=== PATIENT | female | born 2000 | race Caucasian/White ===

== ENCOUNTER 2018-12-03 21:27 | Inpatient (IN) | payer OTHER ==
[2018-12-03 21:49] LABS: #Basophils 0.1 thou/uL (0.0-0.2); #Lymphocytes 0.6 thou/uL (1.20-3.40); #Monocytes 0.8 thou/uL (0.11-0.59); #Neutrophils 13.4 thou/uL (1.40-6.50); %Basophils 0.4 % (0.0-1.0); %Eosinophils 0.1 % (0.0-10.0); %Lymphocytes 3.8 % (28.0-48.0); %Monocytes 5.6 % (0.0-4.0); %Neutrophils 90.2 % (31.0-61.0); Hemoglobin 13.3 g/dL (12.0-16.0); Mean Corpuscular HGB CONC 35.1 g/dL (32.0-36.0); Mean Corpuscular Hemoglobin 31.5 pg (25.0-35.0); Mean Corpuscular Volume 89.7 fL (78.0-98.0); Mean Platelet Volume 7.3 fL (7.4-10.4); Platelet Count 267 thou/uL (130-400); RBC Distribution Width 10.8 % (11.5-14.5); Red Blood Cell (RBC) Count 4.22 mill/uL (4.00-5.20); White Blood Cell (WBC) Count 14.9 thou/uL (4.8-10.8)
[2018-12-03] MEDS ORDERED: Lorazepam 2 MG/ML VIAL ONE (21:51)
[2018-12-03] MEDS ORDERED: diphenhydrAMINE 50 MG/ML VIAL ONE (21:52)
[2018-12-03 21:56] LABS: BHCG - Serum Negative (NEGATIVE); Pregs Control Background? CLEAR/WHITE (CLR/WHITE); Pregs Control Bar Appear? YES (CONTROL BAR)
[2018-12-03 22:13] LABS: ALT (SGPT) 40 U/L (8-55); AST (SGOT) 100 U/L (5-34); Acetaminophen Less than 6.0 mcg/mL (10.0-30.0); Albumin 4.7 g/dL (3.5-5.0); Alcohol Less than 10 mg/dL (Less than 10); Alkaline Phosphatase 71 U/L (40-150); Anion Gap 16 mmol/L (10-20); BUN (Urea Nitrogen) 7 mg/dL (7.0-18.7); Bilirubin, Total 1.1 mg/dL (0.2-1.2); Calc. Creatinine Clearance 0 mL/min (70-130); Calcium 9.9 mg/dL (7.8-10.44); Carbon Dioxide 20 mmol/L (22-29); Chloride 85 mmol/L (98-107); Estimated GFR-MDRD Greater than 90; Globulin 3.1 g/dL (2.4-3.5); Glucose 94 mg/dL (70-105); Potassium 4.4 mmol/L (3.5-5.1); Protein, Total 7.8 g/dL (6.0-8.3); Salicylate Less than 8.0 mg/dL (15.0-30.0)
[2018-12-03 22:16] LABS: Sodium 117 mmol/L (136-145)
[2018-12-03 22:29] LABS: Bilirubin Negative (Negative); Blood, Urine Moderate (Negative); Clarity CLEAR (Clear); Glucose, Urine (Dipstick) Negative (Negative); Leukocyte Negative (Negative); Nitrite Negative (Negative); Protein, Urine (Dipstick) 30 mg/dL (Neg-Trace); Specific Gravity, Urine 1.009 (1.002-1.036); Urobilinogen 0.2 mg/dL (0.2-1.0)
[2018-12-03 22:31] LABS: Bacteria/HPF None Seen HPF (None Seen); Hyaline Casts/LPF 0-3 HYALINE CAST LPF (0-3 Hyaline); RBC/HPF None Seen HPF (0-3); Squamous Epithelial 0-3 HPF (0-3); WBC/HPF 0-3 HPF (0-3)
--- NOTE | 2018-12-03 22:35 | CT ---
CT HEAD WITHOUT CONTRAST: 12/03/2018 HISTORY: Seizure activity. COMPARISON: None. TECHNIQUE: Axial CT imaging obtained at 5 mm intervals, from the vertex through the skull base, without contrast . FINDINGS: There is mild mucosal thickening involving the bilateral ethmoid air cells and the bilateral maxillar y sinuses. There is no displaced calvarial fracture noted. No intracranial hemorrhage, midline shift, or mass effect. There is loss of sulcation at the level of the vertex. fox-white differentiation is maintained bila terally. There is no midline shift or ventricular enlargement. Basilar cisterns are patent. IMPRESSION: Mild loss of sulcation at the level of the vertex, which may simply be on the basis of patient age. There is no intracranial hemorrhage, midline shift, or mass effect, and the basilar cisterns are dahl nt. A mild degree of cerebral edema at the level of the vertex cannot be completely excluded in the proper clinical setting. POS: JOHNATHAN
[2018-12-03 22:38] LABS: Amphetamine Not Detected (NotDetected); Barbiturates Screen Not Detected (NotDetected); Benzodiazepine Screen Not Detected (NotDetected); Cocaine Metabolite Screen Not Detected (NotDetected); Medtox Control Line Valid? VALID (VALID); Medtox Reader # READER 1; Methadone Not Detected (NotDetected); Methamphetamine Not Detected (NotDetected); Opiate Screen Not Detected (NotDetected); Oxycodone Screen Not Detected (NotDetected); Phencyclidine (PCP) Not Detected (NotDetected); THC/Cannabinoid Screen Detected (NotDetected); Tricyclic Screen Not Detected (NotDetected)
[2018-12-03] MEDS ORDERED: Sodium Chloride 3% 100 ML IVPB SCH (23:00)
[2018-12-04] MEDS ORDERED: Ondansetron PF 4 MG/2 ML Vial IVP PRN (00:28)
[2018-12-04 01:12] LABS: Anion Gap 14 mmol/L (10-20); BUN (Urea Nitrogen) 6 mg/dL (7.0-18.7); Calc. Creatinine Clearance 0 mL/min (70-130); Calcium 9.3 mg/dL (7.8-10.44); Carbon Dioxide 19 mmol/L (22-29); Chloride 102 mmol/L (98-107); Estimated GFR-MDRD Greater than 90; Glucose 98 mg/dL (70-105); Potassium 4.2 mmol/L (3.5-5.1); Sodium 131 mmol/L (136-145)
[2018-12-04 02:36] LABS: Anion Gap 14 mmol/L (10-20); BUN (Urea Nitrogen) 7 mg/dL (7.0-18.7); Calc. Creatinine Clearance 0 mL/min (70-130); Calcium 9.5 mg/dL (7.8-10.44); Carbon Dioxide 21 mmol/L (22-29); Chloride 101 mmol/L (98-107); Estimated GFR-MDRD Greater than 90; Glucose 89 mg/dL (70-105); Potassium 4.5 mmol/L (3.5-5.1); Sodium 131 mmol/L (136-145)
[2018-12-04] MEDS ORDERED: Dextrose 5% in Water 500 ML IV SCH ×5 (02:45→22:45)
--- NOTE | 2018-12-04 03:05 | HP ---
PRIMARY CARE DOCTOR: Out of town physician. CODE STATUS: Full code. TIME OF EVALUATION: 12 a.m. CHIEF COMPLAINT: Found unresponsive. HISTORY OF PRESENT ILLNESS: This is a 18-year-old female patient with a past medical history of depression, the patient was taking Wellbutrin, came to the hospital after having an episode of being found at home by her friends. Her friends cannot describe what happened, the last time she was seen normal was at 3 a.m. on Monday, when she was in a democrat. She was taken home by her friends. She went to sleep as per her friend report and she did not answer the phone during the entire day. By the time, the friend got to her home, she found her unresponsive on the floor. She was brought into the ER. She was found to have sodium of 117 with no clear triggers for this. No alleviating factors. Dr. Hughes was being called by Dr. Wall who placed in ICU, who treated with hypertonic sodium 100 mL in 3 hours. We will repeat sodium levels. We will recall Nephrology and then adjust treatment from there. The patient is protecting her airways. She is restless. Occasionally, she is starting to wake up by the time I am examining the patient, parents are in the room, we have discussed diagnostic possibilities. We will be able to have more information once the patient wakes up. Symptoms are severe. No clear triggers. No alleviating factors. REVIEW OF SYSTEMS: Unable to obtain. The patient is encephalopathic. PAST MEDICAL HISTORY: No significant past medical history was noted. The patient positive. PAST SURGICAL HISTORY: No surgical history. PSYCH HISTORY: History of anxiety and depression. SOCIAL HISTORY: The patient lives with her roommates. FAMILY HISTORY: Mother has a history of lupus. ALLERGIES: NO KNOWN DRUG ALLERGIES REPORTED. MEDICATIONS: 1. Wellbutrin. 2. BuSpar. PHYSICAL EXAMINATION: VITAL SIGNS: On presentation, heart rate of 75, respiratory rate was 16, oxygen saturation 99 on room air, blood pressure 130/80, temperature 98.6. GENERAL APPEARANCE: The patient is encephalopathic, lethargic, and protecting airways. HEENT: Eyes, normal conjunctivae. Moist oral mucosa. Anicteric. No JVD. RESPIRATORY: Bilateral air entry. No rales, no wheezes. Symmetric expansion. CARDIOVASCULAR: Normal rate, regular rhythm. No murmurs, no gallops. No edema. ABDOMEN: Soft, normal bowel sounds. MUSCULOSKELETAL: Baseline range of motion and strength. No tenderness. SKIN: Warm, intact. No pallor. No rash. No redness. Peripheral pulses are present. Capillary refill seems to be intact. NEURO: The patient is encephalopathic, unable to fully explore. There is no evidence of any new focal weakness. PSYCH: Unable to explore. DIAGNOSTIC DATA: EKG; the patient has normal sinus rhythm with a rate of 98, MO 148, QRS 82, QT corrected 431. LABORATORY DATA: White count 14.9, hemoglobin 13.3, hematocrit 37.8, MCV 89, platelet count 267. Sodium level 117, there is a repeat one that was 131, it might be lab error. I have discussed with Dr. Hughes. We will stop the drip for now. We will repeat the sodium at 2:00 a.m. and we will adjust treatment after that. Potassium 4.4, chloride 85, carbon dioxide 20, anion gap 16, BUN 7, creatinine 0.6, GFR is normal. Total bilirubin 1.1, AST 100, ALT 40, alkaline phosphatase 71. CK was 5226. Toxicology was done, the patient had only positive for cannabinoids. ASSESSMENT AND PLAN: The patient will be placed in the hospital with following medical problems: 1. Critical care time more than 35 minutes. Discussing with the ER physician, glaze grinder, who placed the patient in ICU. Initial plan is to replace sodium with 3% solution, there has been a repeat sodium that was obtained from the previous line that the patient had that might not be correct. We will repeat the BMP at 2:00 a.m. We will hold the drip for now. We will discuss with Nephrology and adjust the treatment depending on the results. 2. Acute encephalopathy, likely secondary to hyponatremia, unclear reason why the patient became hyponatremic. As per history from roommates, the patient was in a democrat and it looks like she had drunk during the democrat, unclear of what the patient took. The drug screen is negative, except for cannabinoids. We will continue with supportive care. Poison control has been contacted by ER physician. No other significant suggestion has been given. 3. Use of marijuana, unclear if there was any other drugs involved in the current presentation. This will need to be discussed when the patient is more alert. 4. Leukocytosis with white count of 14.9. There is no other evidence of infection at this point, we will monitor, we will treat accordingly. Job ID: [id number]
--- NOTE | 2018-12-04 03:21 | PDOC.EVN ---
Event Note - Event Note Event Note: repeat sodium has been followed and it has corrected to 131, discussed with Dr Hughes, numbers does not seem correct for the low dose sodium infusion that the patient received. we will monitor every 4 hours and if higher than 131 will dilute with d5w. we will follow rec's from Dr Hughes. Pt has not regained mentation even with sodium correction, I have had another conversation with pt' s parents and mother has been checking in his phone and has noted that patient has been having recurrent fevers for the past few weeks, and that has seen other doctors and no specific diagnosis has been given, pt has lost 15 lbs in the past few months and also has been worked up for lupus she was raquel positive but has had no other test positive that confirm diagnosis, mother has also reported that patient was all day long sleeping on Monday and that it happened before the constitution party that the patient had yesterday, and that reportedly, she was sleepy because she was feeling ill. We will start treatment for infectious etiologies there was a possible brain edema reported on ct head and therefore will not proceed with lp at this point, pt will get mri that could help narrowing diagnostic possibilities, Neuro evaluation, will follow recommendations. will adjust management as per patient clinical course.
[2018-12-04] MEDS ORDERED: Acetaminophen 325 MG Suppository ONE ×2 (03:31→03:48)
[2018-12-04] MEDS ORDERED: cefTRIAXone\\ROCEPHIN 2 GM VIAL ONE (03:34)
[2018-12-04] MEDS ORDERED: cefTRIAXone\\ROCEPHIN 2 GM in Sodium Chloride 0.9% 100 ML IVPB SCH (04:00)
[2018-12-04] MEDS ORDERED: Vancomycin HCl 1.5 GM in Sodium Chloride 0.9% 250 ML 300 ML IVPB SCH (05:00)
[2018-12-04] MEDS: Acyclovir Sodium 600 MG in Sodium Chloride 0.9% 100 ML IVPB SCH ×2 (05:16→12:04)
[2018-12-04] MEDS: cefTRIAXone\\ROCEPHIN 2 GM in Sodium Chloride 0.9% 100 ML IVPB SCH ×2 (05:16→17:28)
[2018-12-04 05:21] VITALS: BMI 20.5
[2018-12-04 06:26] LABS: Anion Gap 15 mmol/L (10-20); BUN (Urea Nitrogen) 8 mg/dL (7.0-18.7); Calc. Creatinine Clearance 128 mL/min (70-130); Calcium 9.3 mg/dL (7.8-10.44); Carbon Dioxide 19 mmol/L (22-29); Chloride 103 mmol/L (98-107); Estimated GFR-MDRD Greater than 90; Glucose 89 mg/dL (70-105); Potassium 4.1 mmol/L (3.5-5.1); Sodium 133 mmol/L (136-145)
[2018-12-04] MEDS ORDERED: Dextrose 5% in Water 1,000 ML IV SCH ×3 (06:45→10:46)
[2018-12-04] MEDS ORDERED: Dextrose 5% in Water 1,000 ML IV STA (06:53)
--- NOTE | 2018-12-04 06:55 | PDOC.EVN ---
Event Note - Event Note Event Note: pt had fever 101.2 in Er prior to transfer to icu, picture seems to be pointing more to infection at this point, pt is still lethargic, last sodium checked , discussed with Dr Hughes, we will give D5W , 500 bolus, to keep sodium bellow at least <130, will follow eros li's
--- NOTE | 2018-12-04 07:08 | PDOC.PULCN ---
Pulmonology Consult: HPI - Date of Consult Date: 12/04/18 Time: 10:00 - Consult Details Reason for Consult: Patient in ICU with severe hyponatremia and metabolic encephalopathy Requesting Physician: Paula Salazar - History of Present Illness HPI: ROSALVA BAÑUELOS is a 18 year-old F 18 year old female with PMH of depression, on Wellbutrin and Buspar, was brought to ED after being found unresponsive on ground by friend. Per ED report , patient was out partying the evening prior to admission. Her roommates state they last saw her normal at 3 AM on Monday when she was at a green party. They personally took her home and helped her to bed. They did not hear from her for an entire day, so one of the friends decided to go check in on her, which is when she was found unresponsive on the floor. Per the ED report, the roommates reported her eyes were closed and she was doing "pill-rolling" movements with her fingers, which was concerning for a seizure. Parents at bedside this morning were able to report that patient has been intermittently fevering at night for the last several weeks. Patient has not been hospitalized previously, and she has not had suicidal tendencies in the past. Pulmonology Consult: ROS - Review of Systems ROS unobtainable: due to mental status Pulmonology Consult: PMH Source: family, other (friends) Past Medical History: PMH: Depression Surgical history: None - Family History Family history: reviewed and not pertinent - Social History Smoking Status: Other (Drug screen positive for THC) Alcohol Use: other (Patient out drinking the night prior to admission) Drug Use History: other (Drug screen positive for THC) Living Situation: other (With roommates) Pulmonology Consult: Meds - Medications MAR Reviewed: Yes Medications: Current Medications Acyclovir Sodium 600 mg/ (Sodium Chloride) 112 mls @ 112 mls/hr IVPB 0400,1200, 2000 [facility] Last Admin: 12/04/18 05:16 Dose: 112 mls Vancomycin HCl 1.5 gm/ Sodium (Chloride) 300 mls @ 200 mls/hr IVPB 0500,1700 ANA Last Admin: 12/04/18 05:16 Dose: 300 mls Ceftriaxone Sodium 2 gm/ (Sodium Chloride) 100 mls @ 200 mls/hr IVPB 0400,1600 ANA Last Admin: 12/04/18 05:16 Dose: Not Given Dextrose/Water (D5w) 1,000 mls @ 75 mls/hr IV .[id number] ANA Dextrose/Water (D5w) 1,000 mls @ 999 mls/hr IV .Q1H1M STA Stop: 12/04/18 07:53 Miscellaneous Medication (Pharmacy To Dose) 1 each IVPB ONE PRN PRN Reason: DOSING Stop: 01/03/19 03:26 Ondansetron HCl (Zofran) 4 mg IVP Q6H PRN PRN Reason: Nausea/Vomiting - Allergies Allergies/Adverse Reactions: Allergies Allergy/AdvReac Type Severity Reaction Status Date / Time No Allergy Information Allergy Unverified 12/04/18 05:44 Available Pulmonology Consult: PE - Physical Exam Deviation from normal: Encephalopathic Deviation from normal: Dilated pupils bilaterally, reactive to light and accomodation Cardiovascular: RRR, no significant murmur Respiratory: clear to auscultation anteriorly Gastrointestinal: soft, positive bowel sounds Musculoskeletal: no edema, pulses present Neurological: non-focal, moves all 4 limbs Deviation from normal: Does not respond to commands, but withdrawals to pain -: Meaningful movement appreciated Skin: no rash, cap refill <2 seconds Pulmonology Consult: Results - Labs Result Diagrams: 12/04/18 05:51 12/06/18 06:10 - EKG Data EKG shows normal: sinus rhythm - Radiology Interpretation CT scan - head Status: image reviewed by me, report reviewed by me Additional comments: Mild mucosal thickening involving bilateral ethmoid air cells and bilateral maxillary sinuses. No displaced calvarial fracture noted. Mild loss of sulcation at level of vertex, which may be due to patient's age. No ICH or mass effect. Mild degree of edema at level of vertex cannot be completely excluded. Pulmonology Consult: A/P - Problem (1) Metabolic encephalopathy Code(s): G93.41 - METABOLIC ENCEPHALOPATHY Status: Acute (2) Hyponatremia Code(s): E87.1 - HYPO-OSMOLALITY AND HYPONATREMIA Status: Acute (3) Seizure Code(s): R56.9 - UNSPECIFIED CONVULSIONS Status: Acute (4) Severe sepsis Code(s): A41.9 - SEPSIS, UNSPECIFIED ORGANISM; R65.20 - SEVERE SEPSIS WITHOUT SEPTIC SHOCK Status: Acute (5) Rhabdomyolysis Code(s): M62.82 - RHABDOMYOLYSIS Status: Acute Qualifiers: Encounter type: initial encounter - Time Time: 50% of the time was spent in coordination of care (as documented) at patient's floor/unit and/or counseling patient. Time with Patient: greater than 70 minutes - Plan Plan: 18 year old female found unresponsive with "seizure-like" activity Severe hyponatremia: Sodium 117 on presentation and reported history of "seizure-like" activity. Uncertain whether this is acute hyponatremia (<48h) or chronic. Goal is to increase Na by no more than 12 meq in 24 hour period. Patient started on 3% NS in ED. Na corrected to 131 in a 3 hour period. Nephrology was consulted and recommended patient be started on D5W if Na simon above 131. On follow up lab, Na noted to be 133. D5W was started. Q4H BMP's. Goal is to dilute Na to 129 by 21:00 tonight which would be an increase of 12 meq of Na in a 24 hour period. Metabolic encephalopathy: 2/2 to above. Severe sepsis: Source unknown. Patient with HR >90, leukocytosis, intermittent fevers reported by parents, and encephalopathy. CT brain with possible cerebral edema. In presence of encephalopathy, meningitis cannot be completely excluded. Once stable, patient will have MRI to confirm if cerebral edema is present or if CT findings are consistent with patient her age. No LP will be attempted at this time due to risk of herniation. If MRI negative, then may proceed with LP. In the meantime, Ceftriaxone, Vancomycin, and Acyclovir have been initiated. Will complete workup for sepsis to include LA, Urine culture, Blood cultures, and CXR. Dr. Candelario has been consulted for further recommendations. Seizure: Uncertain if patient truly had seizure, although seizure-like activity was reported by roommates. Likely 2/2 hyponatremia. Will give 1000 mg bolus of keppra and then 500 mg BID thereafter. Hold centrally acting agents which may decrease seizure threshold, to include Wellbutrin. Depression: Will hold medications. Aye Balderas, DO PGY-2 Addendum - Attending - Attending Attestation Date/Time: 12/06/18 [id number] I personally evaluated the patient and discussed the management with Dr. Balderas. I agree with the History, Examination, Assessment and Plan documented above with any addition or exceptions noted below. 70 minutes have been devoted to this patient in various activities. I personally reviewed all imaging studies and laboratory data noted within this document. For fifty percent of this time, I was interacting with the patient at the bedside or coordinating care with the care team. For the remainder of the time I was immediately available to the patient in the hospital unit.
[2018-12-04 08:08] LABS: #Lymphocytes 0.7 thou/uL (1.20-3.40); #Monocytes 1.3 thou/uL (0.11-0.59); #Neutrophils 9.5 thou/uL (1.40-6.50); %Basophils 0.2 % (0.0-1.0); %Eosinophils 0.2 % (0.0-10.0); %Lymphocytes 5.8 % (28.0-48.0); %Monocytes 11.1 % (0.0-4.0); %Neutrophils 82.8 % (31.0-61.0); Mean Corpuscular HGB CONC 34.4 g/dL (32.0-36.0); Mean Corpuscular Hemoglobin 31.4 pg (25.0-35.0); Mean Corpuscular Volume 91.1 fL (78.0-98.0); Platelet Count 257 thou/uL (130-400); RBC Distribution Width 11.1 % (11.5-14.5); Red Blood Cell (RBC) Count 4.14 mill/uL (4.00-5.20); White Blood Cell (WBC) Count 11.5 thou/uL (4.8-10.8)
--- NOTE | 2018-12-04 08:15 | PDOC.PN ---
- Subjective Encounter Start Date: 12/04/18 Encounter Start Time: 08:15 She remains non-verbal - Objective Resuscitation Status - Order Detail: 12/04/18 00:28 Resuscitation Status Routine Resuscitation Status: FULL: Full Resuscitation Vital Signs & Weight: Vital Signs (12 hours) Temp Pulse Ox 12/04/18 05:00 99.7 F H 12/04/18 04:05 100 Weight Weight 123 lb 3.814 oz Most Recent Monitor Data Heart Rate from ECG 77 NIBP 130/57 NIBP BP-Mean 81 Respiration from ECG 20 SpO2 100 I&O: 12/03/18 12/04/18 12/05/18 06:59 06:59 06:59 Intake Total 400 Output Total 500 Balance -100 Result Diagrams: 12/04/18 05:51 12/04/18 05:56 Phys Exam - Physical Examination Constitutional: NAD Obtunded, but will awaken with stim. Respiratory: no wheezing, no rales, no rhonchi, clear to auscultation bilateral Cardiovascular: RRR, no significant murmur, no rub Gastrointestinal: soft, non-tender, no distention, positive bowel sounds Musculoskeletal: no edema Moves all extr spont. Opens eyes, makes eye contact and tracks. No verbal response. Pupils very dilated, but symmetric and responsive. Dx/Plan (1) Acute encephalopathy Code(s): G93.40 - ENCEPHALOPATHY, UNSPECIFIED Status: Acute (2) Leukocytosis Code(s): D72.829 - ELEVATED WHITE BLOOD CELL COUNT, UNSPECIFIED Status: Acute (3) Fever Code(s): R50.9 - FEVER, UNSPECIFIED Status: Acute (4) Hyponatremia Code(s): E87.1 - HYPO-OSMOLALITY AND HYPONATREMIA Status: Acute (5) Obtundation Code(s): R40.1 - STUPOR Status: Acute (6) Rhabdomyolysis Code(s): M62.82 - RHABDOMYOLYSIS Status: Acute - Plan * Suspect toxic encephalopathy. Positive for marijuana and friends indicate she was using it per nurse. Suspect some toxic substance that was not identified on screen. Meningitis also possible. On Vanc, Rocephin and Acyclovir. Possible cerebral edema on CT precluding CSF sampling. MRI pending , but she is likely moving too much for that right now. Prefer to allow assessment by the team before sedating her and adding to the encephalopathy. ID consulted. Isolated for now. Neuro consulted. * Unclear if initial sodium level was accurate. It changed very rapidly and that is unlikely to be the case. Needs fluids for the rhabdo, but being cautious with the potential hyponatremia. Nephrology consulted. * Pulm critical care consulted. * Discussed with patient's family. * Poison control was consulted while patient was in the ED. No other recs.
[2018-12-04] MEDS ORDERED: Vancomycin HCl 1 GM in Premix Bag 1 BAG IVPB SCH (09:00)
[2018-12-04] MEDS ORDERED: Enoxaparin Sodium 40 MG/0.4 ML SYRINGE SC SCH (09:00)
[2018-12-04] MEDS ORDERED: levETIRAcetam In NaCl (Iso-Os) 1,000 MG in Premix Bag 1 BAG IVPB SCH (10:00)
[2018-12-04 10:29] LABS: Anion Gap 14 mmol/L (10-20); BUN (Urea Nitrogen) 8 mg/dL (7.0-18.7); Calc. Creatinine Clearance 113 mL/min (70-130); Calcium 9.2 mg/dL (7.8-10.44); Carbon Dioxide 20 mmol/L (22-29); Chloride 106 mmol/L (98-107); Estimated GFR-MDRD Greater than 90; Glucose 94 mg/dL (70-105); Potassium 3.8 mmol/L (3.5-5.1); Sodium 136 mmol/L (136-145)
--- NOTE | 2018-12-04 11:49 | RAD ---
PORTABLE CHEST: History: Sepsis. FINDINGS: Lungs appear clear. No infiltrate identified. Heart and mediastinum unremarkable. IMPRESSION: No acute abnormality. POS: TPC
[2018-12-04 14:15] LABS: Sodium 137 mmol/L (136-145)
[2018-12-04] MEDS ORDERED: Lorazepam 2 MG/ML VIAL ONE (14:30)
[2018-12-04 15:33] LABS: CSF Source CSF; Clarity Clear (Clear)
[2018-12-04 15:34] LABS: RBC Count - Manual 3 /cumm (None Seen); Tube # 4; WBC/NonHematics Count - Manual 1 /cumm (0-5)
[2018-12-04 15:41] LABS: CSF, Glucose 70 mg/dl (40-70); CSF, Protein 25 mg/dL (15-40)
--- NOTE | 2018-12-04 16:04 | RAD ---
LUMBAR PUNCTURE WITH FLUOROSCOPIC GUIDANCE: HISTORY: Altered mental status. Possible encephalitis or meningitis. EXPOSURE: 0.6 minutes. 40.3 mGy*^m2. FINDINGS: The initial prone revenue collector radiograph demonstrates 5 lumbar-type vertebral bodies. No fractures or logan lignment on the single projection. Successful lumbar puncture with fluoroscopic guidance. A total of 10 cc of clear CSF was collected. No immediate or postprocedure complication. TECHNIQUE: Consent was obtained to perform a lumbar puncture with fluoroscopic guidance. The L2-L3 level was de emed appropriate. The skin was prepped and draped in sterile fashion. 1% Lidocaine, buffered with s odium bicarbonate, was used for local anesthesia. Under fluoroscopic guidance, a 22-gauge spinal nee dle was advanced to the CSF space. The stylette was removed. Prompt flow of clear CSF into the hub of the needle. A total of 10 cc of clear CSF was collected. No immediate or postprocedure complicat ion. IMPRESSION: Successful lumbar puncture with fluoroscopic guidance. POS: JOHNATHAN
[2018-12-04 17:03] LABS: Sodium 132 mmol/L (136-145)
[2018-12-04 17:26] LABS: Syphilis Antibody Nonreactive (Nonreactive); Syphilis Antibody Index 0.06 S/CO (<1.00 Non-Reactive)
[2018-12-04 17:27] LABS: HIV (1/2) Antibody/Antigen Non-Reactive (NonReactive); HIV 1/2 INDEX 0.13 S/CO (<1.00)
[2018-12-04] MEDS: Dextrose 5% in Water 1,000 ML IV SCH ×2 (17:27→23:00)
[2018-12-04 18:54] LABS: Sodium 131 mmol/L (136-145)
[2018-12-04 20:47] LABS: Sodium 130 mmol/L (136-145)
--- NOTE | 2018-12-04 22:09 | CON ---
DATE OF CONSULTATION: 12/04/2018 REASON FOR CONSULTATION: Altered mental status. HISTORY OF PRESENT ILLNESS: A 18-year-old patient with a history of depression and anxiety and she is currently on Wellbutrin, had gone to a green party, Monday night, and came back home around 3 o'clock in the morning on Monday. Nobody actually saw her coming into the house and she lives with a roommate and apparently saw her the next day when she was unconscious and lying on the floor, apparently had vomited and EMS was activated, she was brought to the hospital. The sodium was 117. She was given hypertonic saline 100 mL in 3 hours. Nephrology is following that, adjusting the rate of hyponatremia management. She is currently in the ICU and she wakes up when her name is called, but she will briefly establish eye contact and immediately tries to avoid exam and does not follow commands. She tries to sit up from the bed, does not recognize family members. The patient had 1 bowel movement downstairs in the emergency room, but in the house, there is no report that she had a seizure activity. She might have had something resembling that in the emergency room, but that is not very clear. PAST MEDICAL HISTORY: Medical history again only remarkable for anxiety. SOCIAL HISTORY: She does not smoke and lives with roommate. She is a student. FAMILY HISTORY: Systemic lupus erythematosus. ALLERGIES: NONE. CURRENT MEDICATIONS: Include acyclovir, ceftriaxone, desmopressin, Keppra, vancomycin. PHYSICAL EXAMINATION: VITAL SIGNS: Temperature max 99.7, BP 114/51, pulse 72, respirations 22, O2 saturation 100. SKIN: Did not show any areas of skin breakdown. She has a peripheral IV access and has a Antunez catheter, output is around 500-1700 mL for the past 24 hours. HEENT: No lymphadenopathy. Ocular movements are conjugate. Pupils are 3 mm and reactive and equal. Oral cavity is hard to examine because of lack of cooperation. NECK: Appears supple. LUNGS: Symmetric air entry. No crackles or wheezing. CARDIAC: S1, S2. Regular rate. No S3 or S4. ABDOMEN: Soft. EXTREMITIES: She is able to move all extremities, but does not follow commands. No spasticity. No clonus. Plantar responses are flexor. NEUROLOGIC: She is awake. She does not verbalize any words, does not answer questions. She will establish eye contact briefly when her name is called. She tries to avoid exam. LABORATORY DATA: White cell count 14.9, hemoglobin 13, platelets 267, with 90% neutrophils. Sodium was 117, went up to 131 within 24 hours, and now is 137 and creatinine is 0.7. Urinalysis was normal except for moderate blood probably from the Antunez catheter. CSF exam showed only 1 WBC with normal glucose and protein. Toxicology screen was positive for cannabinoids. The other tested drugs included opioids, which were negative, methamphetamines negative, the plasma alcohol was less than 10. Microbiology is pending. IMAGING STUDIES: We have a chest x-ray, which did not show any abnormalities. A CT scan of the head did not show any abnormalities of significance. ASSESSMENT: Otherwise healthy young female, who went to a green party and then was found unconscious in her bedroom. Apparently, brought to the hospital with severe hyponatremia and partial recovery of her alertness, but still with altered mental status. The CSF rules out a bacterial meningitis and pretty much rules out encephalitis. The most likely scenario is toxic metabolic encephalopathy. The reason for the hyponatremia is not clear, but drug use associated hyponatremia, for example Ecstasy like drugs can have syndrome of inappropriate antidiuretic hormone type of manifestation, which can be also associated with rhabdomyolysis, sometimes seizure activity. Those drugs are not usually tested in the toxicology profile that we usually find in hospitals. This is probably the more likely scenario here, and management will concentrate on stabilizing her metabolically and hoping for return to normal mental state. Job ID: [id number] [id number]
--- NOTE | 2018-12-05 00:30 | CON ---
DATE OF CONSULTATION: 12/04/2018 CONSULTING PHYSICIAN: Hospitalist Service. IMPRESSION: Acute encephalopathy of uncertain etiology. PLAN: 1. EEG. 2. Monitor clinical course. HISTORY OF PRESENT ILLNESS: Ms. Umaña is a 18-year-old college student who had attended a alliance party with friends, been some drinking and apparently smoking marijuana. She was found down on the floor of her apartment the next day. Her CPK was over 5000. Her lab work was, otherwise, unremarkable. She had a CT scan of the brain done, which was normal. She was admitted to the ICU for monitoring. She has failed to regain wakeful state and cooperativeness and on few occasions, she cursed with being manipulated. She, otherwise, has been stable. From her vital sign perspective, she has been afebrile. She has a past history of clinical depression. She was on Wellbutrin prior to this admission. Her drug screen did not show any illicit drug findings other than the THC. PAST MEDICAL HISTORY: Otherwise negative. ALLERGIES: NONE REPORTED. SOCIAL HISTORY: No tobacco use. Positive for alcohol and marijuana. FAMILY HISTORY: Unremarkable. MEDICATIONS: Wellbutrin. REVIEW OF SYSTEMS: Not obtainable. PHYSICAL EXAMINATION: GENERAL: She is a healthy-appearing woman, lying in bed, in no distress. VITAL SIGNS: Blood pressure 115/47, pulse 93, respirations 32, sats 100%. HEENT: Pupils are equal. Conjunctivae clear. Cranium; normocephalic, atraumatic. NECK: [place] supple. No lymphadenopathy noted. EXTREMITIES: No cyanosis or edema. NEUROLOGIC: She would awaken to stimulation, but quickly closed her eyes and rolled over to fall back asleep. Face appeared to be symmetric. Her tone was symmetric. Plantar responses were downgoing. No abnormal movements were seen. Gait is not testable. LABORATORY AND IMAGING DATA: Imaging and lab were reviewed. SUMMARY: This is a young woman with a persistent lethargic state of unknown cause. Thus far, workup has been negative. CSF analysis was also unremarkable. Check an EEG to see what her cerebral activity appears to be at this point. It is possible this may be related to her depression. Job ID: [id number]
[2018-12-05 00:47] LABS: Sodium 127 mmol/L (136-145)
[2018-12-05 05:19] LABS: Sodium 125 mmol/L (136-145)
[2018-12-05 06:56] LABS: ALT (SGPT) 51 U/L (8-55); AST (SGOT) 120 U/L (5-34); Albumin 3.6 g/dL (3.5-5.0); Alkaline Phosphatase 51 U/L (40-150); Anion Gap 11 mmol/L (10-20); BUN (Urea Nitrogen) 6 mg/dL (7.0-18.7); Bilirubin, Total 0.8 mg/dL (0.2-1.2); Calc. Creatinine Clearance 128 mL/min (70-130); Carbon Dioxide 23 mmol/L (22-29); Chloride 95 mmol/L (98-107); Estimated GFR-MDRD Greater than 90; Globulin 2.3 g/dL (2.4-3.5); Glucose 90 mg/dL (70-105); Potassium 3.5 mmol/L (3.5-5.1); Protein, Total 5.9 g/dL (6.0-8.3)
--- NOTE | 2018-12-05 08:40 | CON ---
DATE OF CONSULTATION: 12/04/2018 CONSULTING PHYSICIAN: Dr. Salazar. REASON FOR CONSULT: Severe hyponatremia with possible seizures. REASON FOR ADMISSION: Altered mentation. HISTORY OF PRESENT ILLNESS: This is a 18-year-old female with past medical history of depression, on Wellbutrin, came to the hospital with altered mentation as her parents found her at home unresponsive and nephrology consulted since her sodium was 117, but fortunately with IV fluids it got corrected properly to 131 and is having it dispensed over today. Sodium actually jumped to 137, 20 points correction and we are trying to bring it down with desmopressin and free water. PAST MEDICAL HISTORY: Positive for depression. PAST SURGICAL HISTORY: None. FAMILY HISTORY: Positive for lupus in her mom. SOCIAL HISTORY: It seems like, she does have some drug abuse problem and alcohol use. HOME MEDICATIONS: 1. Wellbutrin. 2. BuSpar. ALLERGIES: NO KNOWN DRUG ALLERGIES. REVIEW OF SYSTEMS: Could not be obtained. The patient is not participating. PHYSICAL EXAMINATION: GENERAL: She is a thin built female, sleeping, somnolent at this time. VITAL SIGNS: Temperature 98.3, pulse 90, respiratory rate 41, blood pressure 106/53. HEENT: Atraumatic, normocephalic. neck - supple CARDIOVASCULAR: S1 and S2 heard. RESPIRATORY: Clear. GASTROINTESTINAL: Abdomen is soft. MUSCULOSKELETAL: No edema. DERMATOLOGIC: No skin rash. NEUROLOGIC: Somnolent. LABORATORY DATA: Sodium was 117, up to 137 and now 131. ASSESSMENT: 1. Hyponatremia - seems hypovolemic but with faster correction than expected. We will continue free water supplementation with desmopressin with close monitoring of sodium. 2. Edema, controlled at this time. 3. Hypertension. 3. Leukocytosis. PLAN: Monitor sodium closely. We will follow. Job ID: [id number] MTDD
[2018-12-05 10:21] LABS: Sodium 125 mmol/L (136-145)
--- NOTE | 2018-12-05 11:51 | PRG ---
DATE OF SERVICE: 12/05/2018 SUBJECTIVE: Patient was seen and examined at bedside and overnight events noted. Patient denies any shortness of breath or chest pain or palpitation. No history of nausea or vomiting or diarrhea or fever or chills or cramps. OBJECTIVE: GENERAL: This is a well-built female, in no acute distress __ VITAL SIGNS: Temperature 98.5, heart rate 74, respiratory rate 19, blood pressure 126/62. HEENT: Atraumatic, normocephalic. Oral mucosa is moist NECK: Supple. CARDIOVASCULAR: S1, S2 heard. Rate and rhythm regular. RESPIRATORY: Clear to auscultation. GASTROINTESTINAL: Abdomen is soft. MUSCULOSKELETAL: No tenderness. No edema. DERMATOLOGIC: No skin rash. NEUROLOGIC: Alert and awake and oriented X3. No focal neurologic deficits. Moving all the extremities. PSYCHIATRIC: Mood and affect normal. LABORATORY DATA: Sodium is 135, potassium is 3.5, BUN is 6, creatinine 0.62. ASSESSMENT AND PLAN: 1. Hyponatremia, stable and plan is to hold free water, and monitor sodium to allow correction by itself. Plan is to keep correction less than 18 mEq/L over 48 hours. 2. Edema, controlled. 3. Hypertension - stable. 4. Leukocytosis. We will continue to monitor. Job ID: [id number] [facility]
--- NOTE | 2018-12-05 12:11 | PDOC.PN ---
- Subjective Encounter Start Date: 12/05/18 Encounter Start Time: 10:15 Subjective: awake, oriented well, recognizes family with names - Objective Resuscitation Status - Order Detail: 12/04/18 00:28 Resuscitation Status Routine Resuscitation Status: FULL: Full Resuscitation MAR Reviewed: Yes Vital Signs & Weight: Vital Signs (12 hours) Temp Pulse Ox 12/05/18 08:00 98.5 F 100 12/05/18 04:00 98.9 F Weight Admit Weight 123 lb Weight 123 lb 0.287 oz Most Recent Monitor Data Heart Rate from ECG 70 NIBP 113/62 NIBP BP-Mean 79 Respiration from ECG 19 SpO2 100 I&O: 12/04/18 12/05/18 12/06/18 06:59 06:59 06:59 Intake Total 400 5229 Output Total 500 2410 90 Balance -100 2819 -90 Result Diagrams: 12/04/18 05:51 12/05/18 09:57 Phys Exam - Physical Examination HEENT: PERRLA, moist MMs Neck: no JVD, supple Respiratory: no wheezing, no rales Cardiovascular: RRR, no significant murmur Gastrointestinal: soft, non-tender, positive bowel sounds Musculoskeletal: no edema, pulses present Neurological: non-focal, moves all 4 limbs Psychiatric: normal affect, A&O x 3 Dx/Plan (1) Acute encephalopathy Code(s): G93.40 - ENCEPHALOPATHY, UNSPECIFIED Status: Resolved (2) Hyponatremia Code(s): E87.1 - HYPO-OSMOLALITY AND HYPONATREMIA Status: Acute - Plan hemo/neurostable -: mri for completion -: oral diet, tx to med floor -: d/w family at bedside -: may not need keppra unless eeg is +ve for Sz * . Review of Systems - Medications/Allergies Allergies/Adverse Reactions: Allergies Allergy/AdvReac Type Severity Reaction Status Date / Time No Allergy Information Allergy Unverified 12/04/18 05:44 Available Medications: Current Medications Bupropion HCl (Wellbutrin) 75 mg PO BID ANA Ondansetron HCl (Zofran) 4 mg IVP Q6H PRN PRN Reason: Nausea/Vomiting
--- NOTE | 2018-12-05 12:21 | PRG ---
DATE OF SERVICE: 12/05/2018 SERVICE: Pulmonary Medicine. INTERVAL HISTORY: The patient had some confusional state until really this morning at about 7 o'clock in the morning. She opened up her eyes and started talking, conversing with the family. She does not have any apparent focal neurologic deficits. She does not have an appetite yet. She denies any current fevers, chills, nausea, or vomiting. She is not having any chest discomfort or belly pain. PHYSICAL EXAMINATION: VITAL SIGNS: Afebrile, pulse 70, blood pressure 113/62, respirations 19, and saturation 100% on room air. GENERAL: The patient is awake and alert, in no apparent distress. LUNGS: Excellent air entry. There is no prolonged expiratory phase or wheezing present. HEART: Normal rate and regular. ABDOMEN: Soft, nontender, and nondistended. Bowel sounds are positive. MUSCULOSKELETAL: No cyanosis or clubbing. There is no pitting in the bilateral lower extremities. NEUROLOGIC: Grossly nonfocal. LABORATORY DATA: WBC 11.5, hemoglobin 13.0, platelets 257,000. Sodium 125 and roughly stable, potassium 3.5. Basic metabolic profile and liver function studies are otherwise unremarkable. CSF fluid was unremarkable. Urine drug screen is only positive for cannabinoids. HIV and syphilis are nonreactive. Blood cultures x2 and urine culture negative to date. ASSESSMENT: 1. Metabolic encephalopathy, resolved. 2. Seizure, possible. 3. Hyponatremia, improving. DISCUSSION AND PLAN: We will back off on our free water. We will allow the patient to gently self-correct through time. At this point, she is stable for transition out of the ICU to the medical unit. When she arrives on the floor, she will have no further requirements for inpatient Pulmonary Critical Care opinion, and I will sign off. Job ID: [id number]
--- NOTE | 2018-12-05 14:41 | MRI ---
MRI BRAIN WITH AND WITHOUT IV CONTRAST: HISTORY: Seizure. Encephalopathy. CORRELATION: CT scan from 12/03/2018. FINDINGS: No evidence of infarct, hemorrhage, mass, midline shift, or abnormal extraaxial fluid collections is seen. The ventricular size is normal, and the basilar cisterns are patent. No abnormal post contras t enhancement is seen. No blood products are noted on the gradient echo sequences. No signal abnorm alities are noted on the highly sensitive FLAIR images. There is mucosal disease in the paranasal si nuses. IMPRESSION: 1. Normal MRI of the brain. 2. Paranasal sinus disease. This study was interpreted in consultation with Dr. Zeke Conner (neuroradiologist), who concurs. POS: JOHNATHAN
[2018-12-05 16:07] LABS: Sodium 136 mmol/L (136-145)
[2018-12-05] MEDS ORDERED: Sodium Chloride 0.9% 10 ML ONE (17:09)
[2018-12-05] MEDS: Dextrose 5% in Water 1,000 ML IV SCH (17:26)
[2018-12-05 20:30] LABS: Sodium 133 mmol/L (136-145)
[2018-12-06] MEDS: Dextrose 5% in Water 1,000 ML IV SCH ×2 (07:11→07:12)
[2018-12-06] MEDS: buPROPion 75 MG TAB PO SCH ×2 (07:11→11:13)
[2018-12-06 07:13] LABS: Anion Gap 13 mmol/L (10-20); BUN (Urea Nitrogen) 8 mg/dL (7.0-18.7); Calc. Creatinine Clearance 122 mL/min (70-130); Calcium 9.1 mg/dL (7.8-10.44); Carbon Dioxide 21 mmol/L (22-29); Chloride 101 mmol/L (98-107); Estimated GFR-MDRD Greater than 90; Glucose 85 mg/dL (70-105); Potassium 3.9 mmol/L (3.5-5.1); Sodium 131 mmol/L (136-145)
[2018-12-06 07:57] VITALS: TEMP 98.1
[2018-12-06] MEDS ORDERED: Dextrose 5% in Water 1,000 ML IV SCH (08:58)
[2018-12-06 11:17] VITALS: BP 125/68
[2018-12-06] MEDS ORDERED: Acetaminophen 500 MG TAB PO SCH (11:45)
--- NOTE | 2018-12-06 12:02 | PDOC.PN ---
- Subjective Encounter Start Date: 12/06/18 Encounter Start Time: 08:30 Subjective: awake, oriented well -: is ambulating and eating well - Objective Resuscitation Status - Order Detail: 12/04/18 00:28 Resuscitation Status Routine Resuscitation Status: FULL: Full Resuscitation MAR Reviewed: Yes Vital Signs & Weight: Vital Signs (12 hours) Temp Pulse Resp BP Pulse Ox 12/06/18 11:16 98.1 F 64 20 125/68 12/06/18 07:56 98.1 F 69 20 109/63 98 12/06/18 05:00 98.3 F 77 18 119/58 L Weight Admit Weight 123 lb Weight 123 lb 0.287 oz Most Recent Monitor Data Heart Rate from ECG 70 NIBP 113/62 NIBP BP-Mean 79 Respiration from ECG 19 SpO2 100 I&O: 12/05/18 12/06/18 12/07/18 06:59 06:59 06:59 Intake Total 5229 400 Output Total 2410 2140 Balance 2819 -1740 Result Diagrams: 12/04/18 05:51 12/06/18 06:10 Phys Exam - Physical Examination HEENT: PERRLA, moist MMs Neck: no JVD, supple Respiratory: no wheezing, no rales Cardiovascular: RRR, no significant murmur Gastrointestinal: soft, non-tender, positive bowel sounds Musculoskeletal: no edema, pulses present Neurological: non-focal, moves all 4 limbs Psychiatric: normal affect, A&O x 3 Dx/Plan (1) Acute encephalopathy Code(s): G93.40 - ENCEPHALOPATHY, UNSPECIFIED Status: Resolved (2) Hyponatremia Code(s): E87.1 - HYPO-OSMOLALITY AND HYPONATREMIA Status: Acute (3) Substance abuse Code(s): F19.10 - OTHER PSYCHOACTIVE SUBSTANCE ABUSE, UNCOMPLICATED Status: Acute Comment: thc+ - Plan hemo/neurostable -: d/w patient and parents with pt's permission at bedside -: dc pt home * .
--- NOTE | 2018-12-06 13:53 | DIS ---
DATE OF ADMISSION: 12/03/2018 DATE OF DISCHARGE: 12/06/2018 DISCHARGE DISPOSITION: To home. PRIMARY DISCHARGE DIAGNOSES: 1. Acute encephalopathy on admission, resolved. 2. Hyponatremia. 3. Substance abuse with urine drug screen positive for marijuana. 4. Initial suspicion for seizure ruled out. PROCEDURES DONE DURING HOSPITALIZATION: Chest x-ray done showed no acute abnormality. CT brain done showed no intracranial hemorrhage, midline shift, or mass effect. Basilar cisterns were patent. The patient had lumbar puncture done by [facility]. MRI brain showed no acute intracranial abnormality. Blood cultures x2, no growth. Urine culture, no growth. HIV 1 and 2 nonreactive. Syphilis IgM/IgG nonreactive. Urine drug screen was positive for cannabinoids. Plasma alcohol less than 10. CSF tube 4 was colorless with 3 rbc's and 1 wbc. CSF glucose was 70. Total protein in the CSF 25. UA showed no signs of infection. The patient had discharge sodium of 131, initial sodium of 117 on admission. INPATIENT CONSULTS: Dr. Roy for Pulmonology and Critical Care. Dr. Amos for Neurology. Dr. Hughes for Nephrology. DISCHARGE MEDICATION: Wellbutrin 75 mg p.o. twice daily. ALLERGIES: NO KNOWN DRUG ALLERGIES. DISCHARGE PLAN: The patient is to follow up with primary care physician in 1 week. BRIEF COURSE DURING HOSPITALIZATION: The patient initially got admitted on the after she was found unresponsive. Initial suspicion was for possible drug abuse. Also, the patient had severe hyponatremia with levels of 117. She was given hypertonic saline in the ER. The patient had rhabdomyolysis with CK levels of 5000 as well. She was initially admitted to ICU and was closely monitored. 30 hours into hospitalization, the patient had a good turnaround. At the time of discharge, she is fully oriented, ambulating well, and eating well. Lumbar puncture done, showed no evidence of infection. Multiple workups including EEG, MRI brain, and CT brain have not shown any acute pathology to explain her initial encephalopathy. I have seen and examined patient on the day of discharge. She is hemodynamically and neurologically stable prior to discharge. Job ID: [id number] [facility]
[2018-12-06 20:09] LABS: HSV 2 - DNA Negative (Negative)
--- NOTE | 2018-12-06 20:34 | PRG ---
DATE OF SERVICE: 12/06/2018 SUBJECTIVE: Patient was seen and examined at bedside and overnight events noted. Patient denies any shortness of breath or chest pain or palpitation. No history of nausea or vomiting or diarrhea or fever or chills or cramps. OBJECTIVE: GENERAL: This is a thin-built female, in no apparent distress. VITAL SIGNS: Temperature 98.1, pulse 85, respiratory rate 20, blood pressure 125/68. HEENT: Atraumatic, normocephalic. Oral mucosa is moist NECK: Supple. CARDIOVASCULAR: S1, S2 heard. Rate and rhythm regular. RESPIRATORY: Clear to auscultation. GASTROINTESTINAL: Abdomen is soft. MUSCULOSKELETAL: No tenderness. No edema. DERMATOLOGIC: No skin rash. NEUROLOGIC: Alert and awake and oriented X3. No focal neurologic deficits. Moving all the extremities. PSYCHIATRIC: Mood and affect normal. LABORATORY DATA: potassium is 3.9, sodium is 131. ASSESSMENT AND PLAN: 1. Hyponatremia, stable. 2. Edema, controlled. 3. Leukocytosis. 4. Hypertension, stable. 5. Labs are stable. Okay to discharge. Follow up with the primary care physician within a week to repeat sodium. Family is aware. Job ID: [id number]
--- NOTE | 2018-12-07 09:35 | EEG ---
Referring Physician: Bridget THURMAN EEG # [id number] TEST TYPE: ROUTINE PORTABLE INPATIENT REPORT: AN EEG USING THE INTERNATIONAL TEN-TWENTY SYSTEM OF ELECTRODE PLACEMENT WAS PERFORMED. The background rhythm is predominately 2-3 hertz Delta activity. There is some low amplitude Alpha seen. Photic stimulation was unremarkable. No epileptiform features were noted. \ IMPRESSION: THIS IS AN ABNORMAL EEG FOR THE FINDINGS OF DIFFUSE SLOWING CONSISTENT WITH DIFFUSE ENCEPHALOPATHY. Suction Worker: SUREKHA Gluer: [email or web address] [email or web address]
--- NOTE | 2018-12-09 00:04 | EKG ---
Test Reason : AMS Blood Pressure : / mmHG Vent. Rate : 098 BPM Atrial Rate : 098 BPM P-R Int : 142 ms QRS Dur : 082 ms QT Int : 338 ms P-R-T Axes : 083 088 062 degrees QTc Int : 431 ms Normal sinus rhythm with sinus arrhythmia Normal ECG Confirmed by MARIUM BRIZUELA, DANDY ([id number]), photo editor LAURYN KINGSTON ([id number]) on 12/09/2018 12:04:02 AM Referred By: MARIUM Confirmed By:DANDY CAUSEY MD
--- NOTE | 2018-12-17 11:58 | PQF ---
ROSALAV BAÑUELOS, EMIL BLANCHARD MD [id number] CLINICAL DOCUMENTATION CLARIFICATION FORM: POST DISCHARGE Addendum to original discharge summary date: ____ Late entry note date: __ DATE: 12/17/18 ATTN: Dr. Harirson Please exercise your independent, professional judgment in responding to the clarification form. Clinical indicators are provided on the bottom of this form for your review Please check appropriate box(s): Conflicting documentation was noted in the Medical Record, please clarify if patient is being treated/monitored for: [ x] Acute encephalopathy [ ] Metabolic encephalopathy ( ) Toxic encephalopathy [ ] Other diagnosis [ ] Unable to determine In addition, please specify: Present on Admission (POA): [ x ] Yes [ ] No [ ] Unable to determine For continuity of documentation, please document condition throughout progress notes and discharge summary. Thank You. CLINICAL INDICATORS - SIGNS / SYMPTOMS/ LABS Acute encephalopathy---Discharge Summary Metabolic encephalopathy, resolved--12/05 Progress note Toxic encephalopathy-12/04 consult-Dr. Octavio Candelario RISK FACTORS Hyponatremia-H&P Substance abuse with urine drug screen positive for marjiuana-Dicharge Summary TREATMENT Lumbar Puncture performed 12/04 IV Fluids-ordered 12/03 Edge Plugger: Claudine Marx CCS 12/17/18 12:57PM MTDD
== END 2018-12-06 13:13 | disposition home or self-care (01) | DRG 641 ==
LOC: ERS 21:27 → ERHOLD 23:00 → CCU 12-04 04:04 → 3SE 12-05 11:13
PROVIDERS: ADMIT Hospitalist; ATTEND Hospitalist
PROC: 009U3ZX Drainage of Spinal Canal, Percutaneous Approach, Diagnostic (ICD-10-PCS; principal; 2018-12-04)
PROC: B01B1ZZ Fluoroscopy of Spinal Cord using Low Osmolar Contrast (ICD-10-PCS; 2018-12-04)
PROC: 4A10X4Z Monitoring of Central Nervous Electrical Activity, External Approach (ICD-10-PCS; 2018-12-06)
DX: E87.1 Hypo-osmolality and hyponatremia (principal); M62.82 Rhabdomyolysis; G93.40 Encephalopathy, unspecified; F32.9 Major depressive disorder, single episode, unspecified; F41.9 Anxiety disorder, unspecified; D72.829 Elevated white blood cell count, unspecified; F12.10 Cannabis abuse, uncomplicated; I10 Essential (primary) hypertension; Z79.899 Other long term (current) drug therapy; Z72.89 Other problems related to lifestyle
CPT/HCPCS: 36415; 51701; 62270; 70450; 70553; 71045; 80048; 80053; 80306; 80307; 81003; 81015; 82550; 82945; 83605; 84146; 84157; 84295; 84703; 85025; 86780; 87040; 87086; 87389; 87529; 89051; 93005; 95816; 95819; 96361; 96365; 96375; A4353; J0133; J0696; J1200; J1953; J2060; J2597; J3370; J7050; J7131

== ENCOUNTER 2019-03-12 08:42 | Outpatient (CLI) | payer OTHER ==
[~2019-03-12 08:42] MED LIST: EPINEPHrine 1 MG/ML AMP ONE; Gadobenate Dimeglumine 529 MG/1 ML (20ML VIAL) ONE; Iopamidol 300 61% 50 ML VIAL FS ONE; Lidocaine 1% PF 10 ML AMP ONE
--- NOTE | 2019-03-12 11:39 | RAD ---
RIGHT WRIST ARTHROGRAM: INDICATION: Concern for scapholunate ligament tear and TFCC tear. FLUOROSCOPIC TIME: 0.5 minutes. TOTAL EXPOSURE: 6.1 mcg*^m2. TECHNIQUE: Preprocedure mallet and die cutter images were obtained of the right wrist. No comparisons are available. The patient was placed prone on the fluoroscopic table with the right upper extremity placed superior to the head. A small bump was utilized to provide flexion at the radiocarpal joint. The site overlying the dorsal aspect of the right wrist was prepped and draped in usual sterile fashion. A stevan eout was performed confirming a right wrist arthrogram. Site was anesthetized utilizing buffered 1% lidocaine. A 25-gauge spinal needle was guided down to the level of proximal pole of the scaphoid. Th ere was administration of 3 cc of a dilute gadolinium solution. Contrast was seen to fill the radiocarpal joint. The patient tolerated the injection without difficulty. FINDINGS: Infant Childcare Provider images demonstrate widening of the scapholunate interval. Radiocarpal alignment otherwise appears within normal limits. No acute fracture is evident. IMPRESSION: Successful right wrist arthrogram. Transcribed Date/Time: 03/12/2019 11:46 AM
--- NOTE | 2019-03-12 11:54 | MRI ---
MR ARTHROGRAM OF THE RIGHT WRIST: INDICATION: Concern for TFCC tear and scapholunate ligamentous disruption. FINDINGS: The scapholunate and lunotriquetral ligaments are intact. The TFCC is intact. No osteochondral lesio n is grossly evident. Carpal alignment is within normal limits. The flexor and extensor tendons are normal appearing. Visualized median nerve and ulnar neurovascular appear within normal limits. IMPRESSION: 1. Intact scapholunate ligament and lunatotriquetral ligament. 2. Intact triangular fibrocartilage complex. Transcribed Date/Time: 03/12/2019 12:00 PM
== END 2019-03-12 08:43 | disposition home or self-care (01) ==
LOC: RAD 08:42
PROVIDERS: ATTEND Orthopaedic Surgery Hand Surgery
DX: S63.8X1D Sprain of other part of right wrist and hand, subsequent encounter (principal); S63.591A Other specified sprain of right wrist, initial encounter; M25.531 Pain in right wrist
CPT/HCPCS: 25246